=== PATIENT | male | born 1970 | race Caucasian/White ===

== ENCOUNTER 2016-06-18 06:53 | Day surgery (SDC) | payer MEDICAID ==
[2016-06-18] MEDS ORDERED: NS 1,000 ML IV ONE (06:59)
[2016-06-18] MEDS ORDERED: DIAZEPAM 5 MG TAB PO ONE (06:59)
[2016-06-18] MEDS ORDERED: diphenhydrAMINE 25 MG CAP PO ONE ×2 (06:59→07:38)
[2016-06-18] MEDS ORDERED: ASPIRIN EC 325 MG TAB PO ONE (06:59)
[2016-06-18] MEDS ORDERED: FAMOTIDINE 20 MG TAB PO ONE (06:59)
--- NOTE | 2016-06-18 07:24 | CPEKG ---
Heart Rate: 76 RR Interval: 789 P-R Interval: 172 QRSD Interval: 96 QT Interval: 396 QTC Interval: 446 P Woodworth: 70 QRS Woodworth: -29 T Wave Woodworth: 45 EKG Severity - OTHERWISE NORMAL ECG - EKG Impression: SINUS RHYTHM EKG Impression: BORDERLINE LEFT AXIS DEVIATION Electronically Signed By: Abelino Pham 18-Jun-2016 07:40:47
[2016-06-18] MEDS ORDERED: DIAZEPAM 5 MG TAB ONE (07:38)
[2016-06-18] MEDS ORDERED: FAMOTIDINE 20 MG TAB ONE (07:38)
[2016-06-18 07:45] LABS: % IMMATURE GRANULYOCYTES 0.4 % (0.0-1.1); ABSOLUTE IMMATURE GRANULOCYTES 0.03 10^3/uL (0.00-0.10); ADD DIFF? NO; ADD MORPH? NO; ADD SCAN? NO; ATYPICAL LYMPHOCYTE FLAG 30 (0-99); FRAGMENT RBC FLAG 0 (0-99); HEMATOCRIT 43.5 % (40.0-51.0); HEMOGLOBIN 15.3 g/dL (13.7-17.5); LEFT SHIFT FLG 0 (0-99); LIPEMIA HEMOLYSIS FLAG 90 (0-99); MEAN CELL HEMOGLOBIN 31.7 pg (27.9-34.1); MEAN CELL HEMOGLOBIN CONCENTR. 35.2 g/dL (32.4-36.7); MEAN CELL VOLUME 90.1 fL (81.5-99.8); MEAN PLATELET VOLUME 8.9 fL (8.7-11.7); PLATELET CLUMPS FLAG 20 (0-99); PLATELET COUNT 360 10^3/uL (150-400); RED BLOOD CELL COUNT 4.83 10^6/uL (4.40-6.38); RED CELL DISTRIBUTION WIDTH 13.7 % (11.5-15.2)
[2016-06-18 07:59] LABS: INR 0.93 (0.83-1.16); PROTIME(PATIENT) 12.4 SEC (12.0-15.0)
[2016-06-18 08:09] LABS: ANION GAP 9 mEq/L (8-16); CALCIUM 8.6 mg/dL (8.5-10.4); CARBON DIOXIDE 24 mEq/l (22-31); CHLORIDE 108 mEq/L (97-110); CHOLESTEROL 171 mg/dL (140-200); CHOLESTEROL/HDL RATIO 3.72 RATIO (1.00-4.97); CREATININE 0.7 mg/dL (0.7-1.3); GLOMERULAR FILTRATION RATE > 60; GLUCOSE 98 mg/dL (70-100); HIGH DENSITY LIPOPROTEIN 46 mg/dL (40-65); LDL/HDL RATIO 2.46 RATIO (1.00-3.64); LOW DENSITY LIPOPROTEIN 113 mg/dL (70-100); MAGNESIUM 1.8 mg/dL (1.6-2.3); NON-HIGH DENSITY LIPOPROTEIN 125 mg/dL (90-129); POTASSIUM 4.5 mEq/L (3.5-5.2); SODIUM 141 mEq/L (134-144); TRIGLYCERIDE 64 mg/dL (40-150); VERY LOW DENSITY LIPOPROTEINS 12 mg/dL (8-25)
[2016-06-18] MEDS ORDERED: LIDOCAINE 1% 30 ML SDV ONE (08:53)
[2016-06-18] MEDS ORDERED: MIDAZOLAM 2 MG/2 ML VIAL ONE (08:54)
[2016-06-18] MEDS ORDERED: VERAPAMIL 5 MG/2 ML VIAL ONE (08:54)
[2016-06-18] MEDS ORDERED: fentaNYL 100 MCG/2 ML INJ ONE (08:54)
[2016-06-18] MEDS ORDERED: HEPARIN 10,000 UNIT/10 ML MDV ONE ×2 (08:55)
[2016-06-18] MEDS ORDERED: IOPAMIDOL (ISOVUE-370) 150 ML BTL IV ONE (08:55)
[2016-06-18] MEDS ORDERED: ETOMIDATE 40 MG/20 ML INJ ONE (09:38)
--- NOTE | 2016-06-18 09:47 | PDDXCAT ---
Diagnostic Cath Note - . Date: 06/18/16 Head Of Digital Advertising & Integration: Charlette Indication: other (CCS IV angina, Intermediate risk stress test, 50 pack year history of smoking, premature family history of cardiac events) - Procedure Access: left wrist (A plethysmography trace assisted Alexandr's Test was used to document dual artery supply to the hand and index finger prior to access.) Procedure: left heart catheterization, coronary angiography, left ventriculogram - Materials Left Heart Cath size: 5F Left Heart Cath materials: JL3.5, JR4.0, pigtail - Findings-Left Heart Catheterization LM: 6 mm in size. Bifurcates into an LAD and circumflex system. LAD: 4 mm in size. No evidence of flow-limiting disease with SANTO III flow. LCX: 3.5 mm in size. No evidence of flow-limiting disease with SANTO III flow. RCA: Right dominant (gives rise to PDA and PLV branches). 3.5 mm in size. No evidence of flow-limiting disease with SANTO III flow throughout. EDP: 13 mmHg LVEF: 51% by planimetry Wall motion: Mild global wall hypokinesis. The visualized protion of the thoracic aorta revealed three sinuses of Valsalva. There was no evidence of aneurysm or dissection. Complications: None Estimated blood loss: <50ml Closure method: TR Band Assessment: No evidence of luminal irregularities consistent with atherosclerosis or coronary artery disease. The patient had a low normal ejection fraction at 51% with mild global wall hypokinesis on LVG. We will place the patient on 30 days of an oral proton pump inhibitor. The patient should follow up with GI given his history of GI bleeding and chronic reflux. He will return to the ER if he vomits or passes blood in his stool. He says he is scheduled for upper and lower endoscopy July 02. Patient Problems: Problems Problem Status Diagnosed Chest pain Acute
== END 2016-06-18 13:30 | disposition home or self-care (01) ==
LOC: FCATH 06:53
PROVIDERS: ATTEND Internal Medicine Cardiovascular Disease
PROC: B2151ZZ Fluoroscopy of Left Heart using Low Osmolar Contrast (ICD-10-PCS; principal; 2016-06-18)
PROC: 4A023N7 Measurement of Cardiac Sampling and Pressure, Left Heart, Percutaneous Approach (ICD-10-PCS; principal; 2016-06-18)
PROC: B2111ZZ Fluoroscopy of Multiple Coronary Arteries using Low Osmolar Contrast (ICD-10-PCS; principal; 2016-06-18)
DX: R07.9 Chest pain, unspecified (principal); Z72.0 Tobacco use; Z82.49 Family history of ischemic heart disease and other diseases of the circulatory system
CPT/HCPCS: J1644; J2250; J3010; Q9967

== ENCOUNTER 2016-07-02 07:46 | Day surgery (SDC) | payer MEDICAID ==
[2016-07-02] MEDS ORDERED: LIDOCAINE 1% 5 ML SDV ONE (08:06)
[2016-07-02] MEDS ORDERED: LR 1,000 ML IV ONE (08:42)
[2016-07-02] MEDS ORDERED: LIDOCAINE 1% 5 ML SDV ID PRN (08:42)
[2016-07-02] MEDS ORDERED: ROCURONIUM 50 MG/5 ML VIAL ONE (11:49)
[2016-07-02] MEDS ORDERED: MIDAZOLAM 2 MG/2 ML VIAL ONE (11:51)
[2016-07-02] MEDS ORDERED: fentaNYL 100 MCG/2 ML INJ ONE (11:53)
[2016-07-02] MEDS ORDERED: PROPOFOL 200 MG/20 ML VIAL ONE ×2 (11:53→11:55)
[2016-07-02] MEDS ORDERED: LIDOCAINE 2% 5 ML SDV ONE (11:56)
[2016-07-02] MEDS ORDERED: PHENYLEPHRINE HCL 100 MCG/ML SYR ONE (12:21)
--- NOTE | 2016-07-02 12:58 | GPN ---
[f rep st] PROCEDURE NOTE DATE OF PROCEDURE: 07/02/2016 PROCEDURE: Esophagogastroduodenoscopy with biopsy. INDICATION: The patient is 45-year-old male with history of Weiss esophagus who presents for evaluation of nausea and vomiting. CONSENT: Risks, benefits, and alternatives of the procedure were discussed in great detail with the patient. Risks of infection, bleeding, perforation, and sedation were discussed. All questions were answered. Informed consent was obtained. MEDICATIONS: Propofol. Please see Anesthesiology records details. ESTIMATED BLOOD LOSS: Insignificant. ESOPHAGOGASTRODUODENOSCOPY EXAMINATION: The Olympus upper endoscope was introduced via the mouth and advanced to the esophagus. The proximal and mid esophagus were normal in appearance. The patient was noted to have an irregular Z line and biopsies were taken. The stomach was entered and closely examined, including retroflexed views of the angularis, cardia and fundus. The patient was noted to have a moderate- sized hiatal hernia. The mucosa in the antrum and the body of the stomach was erythematous in a patchy distribution and biopsies were taken. The duodenal bulb and second portion of the duodenum were normal in appearance. IMPRESSION: 1. Hiatal hernia. 2. Gastritis status post biopsy. 3. Irregular Z line status post biopsies. 4. Due to the absence of other causes and hiatal hernia seen, suspect this may be due to gastroesophageal reflux disease. RECOMMENDATIONS: 1. At this time, I recommend an anti-reflux lifestyle, as well as PPI therapy twice a day. 2. Proceed with a colonoscopy for evaluation of hematochezia. /[id number]/MODL MTDD
--- NOTE | 2016-07-02 13:02 | GPN ---
[f rep st] PROCEDURE NOTE DATE OF PROCEDURE: 07/02/2016 PROCEDURE DONE: Incomplete colonoscopy due to prep. INDICATION: The patient is a 45-year-old male who presents for hematochezia. He presents for further evaluation. CONSENT: Risks, benefits, and alternatives of the procedure were discussed in detail with the patient. Risk of infection, bleeding, perforation, and sedation were discussed. All questions were answered. Informed consent was obtained. MEDICATIONS: Propofol. Please see Anesthesiology record for details. ESTIMATED BLOOD LOSS: None. COLONOSCOPIC EVALUATION: The scope was introduced into the rectum. A large amount of solid, as well as liquid, thick brown stool was seen. The procedure was terminated at this time. IMPRESSION: Poor prep. RECOMMENDATIONS: Needs 2-day prep with the whole 2 preps. /[id number]/MODL MTDD
== END 2016-07-02 14:54 | disposition home or self-care (01) ==
LOC: FSGY 07:46
PROVIDERS: ATTEND Internal Medicine Gastroenterology
PROC: 0DB58ZX Excision of Esophagus, Via Natural or Artificial Opening Endoscopic, Diagnostic (ICD-10-PCS; principal; 2016-07-02 11:45)
DX: K92.1 Melena (principal); K29.70 Gastritis, unspecified, without bleeding; K44.9 Diaphragmatic hernia without obstruction or gangrene; Z72.0 Tobacco use; J44.9 Chronic obstructive pulmonary disease, unspecified; I25.10 Atherosclerotic heart disease of native coronary artery without angina pectoris
CPT/HCPCS: J2250; J2370; J2704; J3010

== ENCOUNTER 2016-12-07 01:53 | Emergency (ER) | payer MEDICAID ==
--- NOTE | 2016-12-07 01:55 | EDPHY ---
H & P HPI/ROS: HPI CHIEF COMPLAINT: Right-sided chest pain. HISTORY OF PRESENT ILLNESS: This patient 46-year-old male, denies having any significant medical history does not take any daily medications, presents emergency room 48 hours of sharp stabbing right sided lateral chest wall pain. Radiates into his right axilla. Worse with certain movements as well as when he breathes in and out. He denies hemoptysis. Productive cough. He does cough chronically as he smokes 1.5 packs per day. Denies left-sided chest pain , denies numbness or tingling, nausea vomiting. Main complaint is sharp stabbing right lateral chest wall pain. Denies trauma. Past Medical History: Weiss's esophagus. Past Surgical History: Left clavicle surgery. Social History: smokes 1.5 packs per day. Denies illicit drugs or alcohol. Family History: Noncontributory ROS REVIEW OF SYSTEMS: A comprehensive 10 point review of systems is otherwise negative aside from elements mentioned in the history of present illness. Exam Constitutional triage nursing summary reviewed, vital signs reviewed, awake/ alert. Eyes normal conjunctivae and sclera, EOMI, PERRLA. HENT normal inspection, atraumatic, moist mucus membranes, no epistaxis, neck supple/ no meningismus, no raccoon eyes. Respiratory clear to auscultation bilaterally, normal breath sounds, no respiratory distress, no wheezing. Cardiovascular chest wall: tender palpation right lateral chest wall. rate normal, regular rhythm, no murmur, no edema, distal pulses normal. Gastrointestinal soft, non-tender, no rebound, no guarding, normal bowel sounds, no distension, no pulsatile mass. Genitourinary no CVA tenderness. Musculoskeletal no midline vertebral tenderness, full range of motion, no calf swelling, no tenderness of extremities, no meningismus, good pulses, neurovascularly intact. Skin pink, warm, & dry, no rash, skin atraumatic. Neurologic awake, alert and oriented x 3, AAOx3, moves all 4 extremities equally, motor intact, sensory intact, CN II-XII intact, normal cerebellar, normal vision, normal speech. Psychiatric normal mood/affect. Heme/Lymph/Immune no lymphadenopathy. Differential Diagnosis: Includes but is not limited to in a particular order pleurisy, pneumonia, pulmonary embolism, pneumothorax, musculoskeletal chest wall pain, rib contusion, rib strain, costochondritis Medical Decision Making: plan for this patient x-ray two view to rule out pneumothorax, EKG, blood work, 30 mg IV Toradol, he is allergic to aspirin gives him nausea but states that he has taken to her in the past fine. Re- evaluate. Re-evaluation: EKG interpretation by me on record in [employer] computer system. Impression Time of EKG 2:17 a.m., sinus rhythm rate of 73 there is left axis deviation present. There is no acute ST elevation or significant ST depression or significant T- wave abnormalities. Unremarkable EKG. ED x-ray chest two view: negative for acute cardiopulmonary disease. Left clavicle previous heart rates noted. No pneumothorax. No lung mass. Image interpreted by myself. 0309AM: Patient resting comfortably in fact he was sleeping. I woke him up. Feels much better. He denies pain at this time. He tells me IV Toradol made him pain free. His D-dimer is negative troponin negative EKG nonischemic. Chest x-ray two view shows no pneumothorax or obvious source of pain. Feels better after anti-inflammatory pain medicine most likely this is musculoskeletal rib pain or nerve inflammation. I do recommend he use ice packs , anti-inflammatory pain medicine. He understands to return to the emergency room if develops worsening symptoms I do also recommend he refrain from smoking. Source: Patient - Medical/Surgical History Hx Asthma: No Hx Chronic Respiratory Disease: Yes Hx Diabetes: No Hx Cardiac Disease: Yes Hx Renal Disease: No Hx Cirrhosis: No Hx Alcoholism: No Hx HIV/AIDS: No Hx Splenectomy or Spleen Trauma: No Other PMH: COPD, CHF, BARRETS ESOPHAGUS, KIDNEY TUMOR, BACK DISC PROBS, BIPOLAR , PTSD, ?GA AT 35 YR - Social History Smoking Status: Heavy smoker Constitutional: Initial Vital Signs Temperature (C) 36.5 C 12/07/16 02:00 Heart Rate 73 12/07/16 02:00 Respiratory Rate 16 12/07/16 02:00 Blood Pressure 110/74 12/07/16 02:00 O2 Sat (%) 96 12/07/16 02:00 O2 Delivery Mode Room Air Allergies/Adverse Reactions: aspirin Allergy (Mild, Verified 12/07/16 02:02) Home Medications: Medication Instructions Recorded Gabapentin [Neurontin 300 MG (*)] 06/01/16 Ibuprofen [Motrin (*)] 800 mg PO Q6-8PRN #10 tab 12/07/16 Medical Decision Making - Data Points Laboratory Results: Laboratory Results 12/07/16 02:10 12/07/16 02:10 12/07/16 12/07/16 12/07/16 02:10 02:10 02:10 WBC 10.14 10^3/uL H 10^3/uL (3.80-9.50) RBC 4.72 10^6/uL 10^6/uL (4.40-6.38) Hgb 15.1 g/dL g/dL (13.7-17.5) Hct 43.4 % % (40.0-51.0) MCV 91.9 fL fL (81.5-99.8) MCH 32.0 pg pg (27.9-34.1) MCHC 34.8 g/dL g/dL (32.4-36.7) RDW 12.9 % % (11.5-15.2) Plt Count 312 10^3/uL 10^3/uL (150-400) MPV 9.6 fL fL (8.7-11.7) Neut % (Auto) 58.8 % % (39.3-74.2) Lymph % (Auto) 29.9 % % (15.0-45.0) Lassen % (Auto) 8.1 % % (4.5-13.0) Eos % (Auto) 2.2 % % (0.6-7.6) Baso % (Auto) 0.6 % % (0.3-1.7) Nucleat RBC Rel Count 0.0 % % (0.0-0.2) Absolute Neuts (auto) 5.97 10^3/uL 10^3/uL (1.70-6.50) Absolute Lymphs (auto) 3.03 10^3/uL H 10^3/uL (1.00-3.00) Absolute Monos (auto) 0.82 10^3/uL H 10^3/uL (0.30-0.80) Absolute Eos (auto) 0.22 10^3/uL 10^3/uL (0.03-0.40) Absolute Basos (auto) 0.06 10^3/uL 10^3/uL (0.02-0.10) Absolute Nucleated RBC 0.00 10^3/uL 10^3/uL (0-0.01) Immature Gran % 0.4 % % (0.0-1.1) Immature Gran # 0.04 10^3/uL 10^3/uL (0.00-0.10) D-Dimer < 0.27 ug/mLFEU ug/mLFEU (0.00-0.50) Sodium 142 mEq/L mEq/L (134-144) Potassium 4.2 mEq/L mEq/L (3.5-5.2) Chloride 106 mEq/L mEq/L (97-110) Carbon Dioxide 24 mEq/l mEq/l (22-31) Anion Gap 12 mEq/L mEq/L (8-16) BUN 16 mg/dL mg/dL (7-23) Creatinine 1.0 mg/dL mg/dL (0.7-1.3) Estimated GFR > 60 Glucose 132 mg/dL H mg/dL (70-100) Calcium 9.9 mg/dL mg/dL (8.5-10.4) Magnesium 1.9 mg/dL mg/dL (1.6-2.3) Total Bilirubin 0.5 mg/dL mg/dL (0.1-1.4) Conjugated Bilirubin 0.2 mg/dL mg/dL (0.0-0.5) Unconjugated Bilirubin 0.3 mg/dL mg/dL (0.0-1.1) AST 22 IU/L IU/L (17-59) ALT 30 IU/L IU/L (21-72) Alkaline Phosphatase 54 IU/L IU/L (38-126) Creatine Kinase 93 IU/L IU/L (0-224) CK-MB (CK-2) Fraction 0.88 ng/mL ng/mL (0-3.19) Troponin I < 0.012 ng/mL ng/mL (0-0.034) Total Protein 6.5 g/dL g/dL (6.3-8.2) Albumin 3.9 g/dL g/dL (3.5-5.0) Lipase 228.0 IU/L IU/L (23-300) Medications Given: Discontinued Medications Sodium Chloride (Ns) 1,000 mls @ 0 mls/hr IV ONCE ONE; Wide Open PRN Reason: Protocol Stop: 12/07/16 02:02 Last Admin: 12/07/16 02:21 Dose: 1,000 mls Ketorolac Tromethamine (Toradol) 30 mg IVP EDNOW ONE Stop: 12/07/16 02:02 Last Admin: 12/07/16 02:20 Dose: 30 mg Departure - Departure Disposition: Home, Routine, Self-Care Clinical Impression: Chest wall pain Condition: Good Instructions: Thoracic Pain (ED) Additional Instructions: 1. Return emergency room if you have any worsening symptoms questions or concerns. 2. Ice your chest wall. Take anti-inflammatory pain medicine. 3. Return emergency room if there is worsening symptoms 4. take this medication with food not on an empty stomach. If it is causing indigestion stop taking the medication. Referrals: Sierra Patel, PAC [Primary Care Provider] - As per Instructions Prescriptions: Ibuprofen [Motrin (*)] 800 mg PO Q6-8PRN #10 tab
[2016-12-07] MEDS ORDERED: KETOROLAC 30 MG/1 ML SDV IVP ONE (02:01)
[2016-12-07] MEDS ORDERED: NS 1,000 ML IV ONE (02:01)
[2016-12-07 02:17] LABS: % IMMATURE GRANULYOCYTES 0.4 % (0.0-1.1); ABSOLUTE IMMATURE GRANULOCYTES 0.04 10^3/uL (0.00-0.10); ADD DIFF? NO; ADD MORPH? NO; ADD SCAN? NO; ATYPICAL LYMPHOCYTE FLAG 30 (0-99); FRAGMENT RBC FLAG 0 (0-99); HEMATOCRIT 43.4 % (40.0-51.0); HEMOGLOBIN 15.1 g/dL (13.7-17.5); LEFT SHIFT FLG 0 (0-99); LIPEMIA HEMOLYSIS FLAG 90 (0-99); MEAN CELL HEMOGLOBIN CONCENTR. 34.8 g/dL (32.4-36.7); MEAN CELL VOLUME 91.9 fL (81.5-99.8); MEAN PLATELET VOLUME 9.6 fL (8.7-11.7); PLATELET CLUMPS FLAG 0 (0-99); PLATELET COUNT 312 10^3/uL (150-400); RED BLOOD CELL COUNT 4.72 10^6/uL (4.40-6.38); RED CELL DISTRIBUTION WIDTH 12.9 % (11.5-15.2)
--- NOTE | 2016-12-07 02:19 | CPEKG ---
Heart Rate: 73 RR Interval: 822 P-R Interval: 172 QRSD Interval: 98 QT Interval: 404 QTC Interval: 446 P Chester: 77 QRS Chester: -36 T Wave Chester: 19 EKG Severity - OTHERWISE NORMAL ECG - EKG Impression: SINUS RHYTHM EKG Impression: LEFT AXIS DEVIATION Electronically Signed By: Navin Chapman 07-Dec-2016 06:58:21
[2016-12-07 02:31] LABS: ALANINE AMINOTRANSFERASE 30 IU/L (21-72); ALBUMIN 3.9 g/dL (3.5-5.0); ALKALINE PHOSPHATASE 54 IU/L (38-126); ANION GAP 12 mEq/L (8-16); ASPARTATE AMINOTRANSFERASE 22 IU/L (17-59); BILIRUBIN,TOTAL 0.5 mg/dL (0.1-1.4); BILIRUBIN-CONJUGATED 0.2 mg/dL (0.0-0.5); BILIRUBIN-UNCONJUGATED 0.3 mg/dL (0.0-1.1); CALCIUM 9.9 mg/dL (8.5-10.4); CARBON DIOXIDE 24 mEq/l (22-31); CHLORIDE 106 mEq/L (97-110); GLOMERULAR FILTRATION RATE > 60; GLUCOSE 132 mg/dL (70-100); MAGNESIUM 1.9 mg/dL (1.6-2.3); POTASSIUM 4.2 mEq/L (3.5-5.2); SODIUM 142 mEq/L (134-144); TOTAL PROTEIN 6.5 g/dL (6.3-8.2)
[2016-12-07 02:43] LABS: CREATINE KINASE-MB FRACTION 0.88 ng/mL (0-3.19); TROPONIN I < 0.012 ng/mL (0-0.034)
[2016-12-07 03:27] VITALS: BP 97/63; PULSE 75; RESP 18; TEMP 98.1; O2SAT 95
== END 2016-12-07 03:28 | disposition home or self-care (01) ==
DX: R07.89 Other chest pain (principal); J44.9 Chronic obstructive pulmonary disease, unspecified; I50.9 Heart failure, unspecified; F17.200 Nicotine dependence, unspecified, uncomplicated; E86.9 Volume depletion, unspecified
CPT/HCPCS: 96374; J1885

== ENCOUNTER 2016-12-19 18:39 | Emergency (ER) | payer MEDICAID ==
[2016-12-19 18:44] VITALS: RESP 16; TEMP 98.1
[2016-12-19 19:16] LABS: % IMMATURE GRANULYOCYTES 0.4 % (0.0-1.1); ABSOLUTE IMMATURE GRANULOCYTES 0.04 10^3/uL (0.00-0.10); ADD DIFF? NO; ADD MORPH? NO; ADD SCAN? NO; ATYPICAL LYMPHOCYTE FLAG 10 (0-99); FRAGMENT RBC FLAG 0 (0-99); HEMATOCRIT 47.2 % (40.0-51.0); HEMOGLOBIN 16.4 g/dL (13.7-17.5); LEFT SHIFT FLG 0 (0-99); LIPEMIA HEMOLYSIS FLAG 90 (0-99); MEAN CELL HEMOGLOBIN 31.7 pg (27.9-34.1); MEAN CELL HEMOGLOBIN CONCENTR. 34.7 g/dL (32.4-36.7); MEAN CELL VOLUME 91.3 fL (81.5-99.8); MEAN PLATELET VOLUME 9.1 fL (8.7-11.7); PLATELET CLUMPS FLAG 0 (0-99); PLATELET COUNT 365 10^3/uL (150-400); RED BLOOD CELL COUNT 5.17 10^6/uL (4.40-6.38); RED CELL DISTRIBUTION WIDTH 13.6 % (11.5-15.2)
[2016-12-19 19:43] LABS: ANION GAP 13 mEq/L (8-16); CALCIUM 9.5 mg/dL (8.5-10.4); CARBON DIOXIDE 21 mEq/l (22-31); CHLORIDE 107 mEq/L (97-110); CREATININE 0.9 mg/dL (0.7-1.3); ETHANOL SERUM < 10 mg/dL (0-10); GLOMERULAR FILTRATION RATE > 60; GLUCOSE 104 mg/dL (70-100); POTASSIUM 4.4 mEq/L (3.5-5.2); SODIUM 141 mEq/L (134-144)
--- NOTE | 2016-12-19 19:51 | EDPHY ---
[facility] General Narrative: CHIEF COMPLAINT: depression HISTORY OF PRESENT ILLNESS: 46-year-old male presents emergency department via taxi from [facility] for medical clearance prior to psychiatric hospitalization. Patient has a history of depression, PTSD, previous suicide attempts. He has increasing depression over the last few months. Patient denies current active suicidal thoughts, he reports years of chronic suicidal thoughts. Patient reports he has been sober for 4 years. He reports he is in a bad marriage. He is requesting medication stabilization and treatment. Patient denies suicidal ideations, homicidal ideations, auditory or visual hallucinations. He denies drug or alcohol use other than marijuana. REVIEW OF SYSTEMS: A comprehensive 10 point review of systems is otherwise negative aside from elements mentioned in the history of present illness. Physical Exam Gen: Alert and Oriented, NAD HEENT: PERRL, moist mucous membranes NECK: no meningismus CV: regular rate and regular rhythm PULM: CTAB, no wheezes ABDOMEN: soft, non tender to palpation, BS present BACK: No CVA tenderness NEURO: Neurologically grossly intact EXTREMITIES: normal appearing SKIN: no rash or break in skin on exposed skin PSYCH: answers questions appropriately, denies current suicidal ideations, homicidal ideations, auditory or visual hallucinations. Previous Psychiatric History: previous inpatient psychiatric admission, previous suicide attempt, substance abuse, depression Smoking Status: Heavy smoker Medical Decision Making: The patient is medically cleared and has been discharged and sent back to [facility] awaiting hospitalization. Time Medically Cleared for Psychiatric Evaluation: 20:15 - Objective Vital Signs: Initial Vital Signs Temperature (C) 36.7 C 12/19/16 18:42 Heart Rate 100 12/19/16 18:42 Respiratory Rate 16 12/19/16 18:42 Blood Pressure 115/79 12/19/16 18:42 O2 Sat (%) 94 12/19/16 18:42 O2 Delivery Mode Room Air Allergies/Adverse Reactions: aspirin Allergy (Mild, Verified 12/07/16 02:02) Home Medications: Medication Instructions Recorded Gabapentin [Neurontin 300 MG (*)] 06/01/16 Ibuprofen [Motrin (*)] 800 mg PO Q6-8PRN #10 tab 12/07/16 Laboratory Results: Laboratory Results 12/19/16 19:05 12/19/16 19:05 Departure - Departure Disposition: Home, Routine, Self-Care Clinical Impression: Depression Condition: Good Instructions: Depression (ED) Additional Instructions: [facility] Referrals: [facility],. [Clinic] - As per Instructions
[2016-12-19 20:14] VITALS: BP 112/75; PULSE 89; O2SAT 95
== END 2016-12-19 20:26 | disposition home or self-care (01) ==
DX: F32.9 Major depressive disorder, single episode, unspecified (principal); F17.200 Nicotine dependence, unspecified, uncomplicated
CPT/HCPCS: 80305; G0480

== ENCOUNTER 2017-01-21 12:15 | Day surgery (SDC) | payer MEDICAID ==
[2017-01-21] MEDS ORDERED: LIDOCAINE 1% 2 ML INJ ONE (12:49)
[2017-01-21] MEDS ORDERED: LIDOCAINE 1% 2 ML INJ ID PRN (12:50)
[2017-01-21] MEDS ORDERED: LR 1,000 ML IV ONE (12:50)
--- NOTE | 2017-01-21 14:44 | PDANEPAE ---
ANE Past Medical History - Cardiovascular History Hx Hypertension: No Hx Arrhythmias: No Hx Chest Pain: No Hx Coronary Artery / Peripheral Vascular Disease: No Hx CHF / Valvular Disease: No Hx Palpitations: No Cardiovascular History Comment: hx of chest pains- work up with Karin at [facility]. chf. cp. mi at 35 yo - Pulmonary History Hx COPD: No Hx Asthma/Reactive Airway Disease: No Hx Recent Upper Respiratory Infection: No Hx Oxygen in Use at Home: No Hx Sleep Apnea: No Sleep Apnea Screening Result - Last Documented: Negative Pulmonary History Comment: rex triggers no dx. CHILDHOOD ASTHMA - Neurologic History Hx Cerebrovascular Accident: No Hx Seizures: No Hx Dementia: No - Endocrine History Hx Diabetes: No - Renal History Hx Renal Disorders: Yes Renal History Comment: kidney tumor currently being looked at next week - Liver History Hx Hepatic Disorders: No - Neurological & Psychiatric Hx Hx Neurological and Psychiatric Disorders: Yes Neurological / Psychiatric History Comment: bipolar. ptsd - Cancer History Hx Cancer: No - Congenital Disorder History Hx Congenital Disorders: No - GI History Hx Gastrointestinal Disorders: Yes Gastrointestinal History Comment: barretts esophagus. hx of colonoscopy - Other Health History Other Health History: wears glasses - Chronic Pain History Chronic Pain: No - Surgical History Prior Surgeries: ANGIOGRAM. appy. left shoulder reconstruction. kidney tumor removal. routine colonoscopy ANE Review of Systems - Exercise capacity METS (RN): 4 METS ANE Patient History - Allergies Allergies/Adverse Reactions: aspirin Allergy (Mild, Verified 12/07/16 02:02) - Home Medications Home Medications: Gabapentin [Neurontin 300 MG (*)] 06/01/16 [Last Taken 07/01/16] [place] Carbonate 01/18/17 [Last Taken 01/19/17] Vistaril 01/18/17 [Last Taken 01/18/17] Xanax 01/18/17 [Last Taken 01/18/17] Zyprexa 01/18/17 [Last Taken 01/19/17] - NPO status NPO Status: no food or drink >8 hours NPO Since - Liquids (Date): 01/21/17 NPO Since - Liquids (Time): 03:00 NPO Since - Solids (Date): 01/20/17 NPO Since - Solids (Time): 08:00 - Anes Hx Anes Hx: no prior problems - Smoking Hx Smoking Status: Heavy smoker (30 pack years) - Alcohol Use Alcohol Use: None - Family Anes Hx Family Anes Hx: none Family Hx Anesthesia Complications: none ANE Labs/Vital Signs - Vital Signs Blood Pressure: 112/80 Heart Rate: 82 Respiratory Rate: 16 O2 Sat (%): 93 Height: 187.96 cm Weight: 88.451 kg ANE Physical Exam - Airway Neck exam: FROM Mallampati Score: Class 2 Mouth exam: normal dental/mouth exam - Pulmonary Pulmonary: no respiratory distress, clear to auscultation - Cardiovascular Cardiovascular: regular rate and rhythym, no murmur, rub, or gallop - ASA Status ASA Status: III ANE Anesthesia Plan Anesthesia Plan: GA with mask Total IV Anesthesia: Yes
[2017-01-21] MEDS ORDERED: PROPOFOL/EMULSION 500 MG/50 ML BOTTLE IV ONE ×2 (15:30→16:13)
--- NOTE | 2017-01-21 15:42 | PDGENHP ---
History & Physical Chief Complaint: phx polyps History of Present Illness: 46 year old male presents for evaluation of blood in stools. Has Phx polyps. Pertinent Past, Social, Family History: PMHx: CAD, asthma, Relevant Physical Exam: HEENT: anicteric. CV: RRR +s1s2. Lungs: CTAB No w/r/ r. Abd; soft, nt, + BS Cardiorespiratory Assessment: ASA 3
[2017-01-21] MEDS ORDERED: NS 500 ML IV SCH (15:45)
--- NOTE | 2017-01-21 15:45 | POSTOPPROG ---
Post Op Note Date of Operation: 01/21/17 Surgeon: Cornelius Reed Anesthesia: IV Sedation Pre-op Diagnosis: barretts, blood in stools, phx polyps Post-op Diagnosis: hemorrhoids, gs Indication: barretts, blood in stools, phx polyps Procedure: EGD with Bx, colonoscopy. Inf/Abcess present in the surg proc area at time of surgery?: No EBL: Minimal Specimen(s): irreg z line gastritis
[2017-01-21] MEDS ORDERED: ACETAMINOPHEN 500 MG TAB PO PRN (16:04)
[2017-01-21] MEDS ORDERED: NALOXONE HCL 0.4 MG/ML INJ IVP PRN (16:04)
[2017-01-21 16:29] VITALS: TEMP 98.2
--- NOTE | 2017-01-21 17:01 | GPN ---
[f rep st] PROCEDURE NOTE DATE OF PROCEDURE: 01/21/2017 PROCEDURE: Esophagogastroduodenoscopy with biopsy. INDICATIONS: The patient is a 46-year-old male who presents for evaluation of nausea. CONSENT: Risks, benefits, and alternatives of the procedure were discussed in great detail with the patient. Risks of infection, bleeding, perforation, and sedation were discussed. All questions answered and informed consent was obtained. MEDICATIONS: Propofol. Please see Anesthesiology records for details. ESTIMATED BLOOD LOSS: Insignificant. ESOPHAGOGASTRODUODENOSCOPY EXAMINATION: The Olympus upper endoscope was introduced into the mouth and advanced to the esophagus. The proximal and mid esophagus normal in appearance. The patient was noted to have an irregular Z- line, and biopsies were taken. A large hiatal hernia was noted. The stomach was entered and closely examined, including retroflexed view of the angularis, cardia, and fundus. The mucosa in the antrum and the body was erythematous in a patchy distribution. Biopsies were taken. The duodenal bulb and 2nd portion of the duodenum were normal in appearance. IMPRESSION: 1. Irregular Z-line, status post biopsy. 2. Hiatal hernia. 3. Gastritis, status post biopsy. 4. Due to large hiatal hernia, nausea may be due to reflux. Recommend proton pump inhibitor therapy and anti-reflux lifestyle. Await biopsy. RECOMMENDATIONS: 1. Follow up on biopsy results. 2. PPI therapy. 3. Antireflux lifestyle. 4. Proceed with colonoscopy. /[id number]/MODL MTDD
[2017-01-21 17:31] VITALS: BP 111/69; PULSE 78; RESP 13; O2SAT 95
--- NOTE | 2017-01-21 17:36 | GPN ---
[f rep st] PROCEDURE NOTE DATE OF PROCEDURE: 01/21/2017 PROCEDURE: Colonoscopy. INDICATIONS FOR PROCEDURE: The patient is a 46-year-old male with a personal history of polyps who presents for evaluation of hematochezia. CONSENT: Risks, benefits, and alternatives of the procedure were discussed in great detail with the patient. Risks of infection, bleeding, perforation, and sedation were discussed. All questions answered. Informed consent obtained. MEDICATIONS: Propofol. Please see Anesthesia records for details. ESTIMATED BLOOD LOSS: None. COLONOSCOPIC EVALUATION: A rectal exam was performed and internal hemorrhoids were appreciated. The Olympus adult colonoscope was placed in the rectum and advanced to cecum where the ileocecal valve and appendiceal orifice were seen. The quality of prep was good. The colonic mucosa was carefully examined on both insertion and withdrawal of the scope. Diverticula were noted in the sigmoid colon. No polyps or masses were noted. IMPRESSION: 1. Diverticulosis. 2. Suspect bleeding is hemorrhoidal. RECOMMENDATIONS: 1. Fiber supplementation. 2. No straining during bowel habits. 3. Repeat colonoscopy in 5 years, due to his history of precancerous polyps. /[id number]/MODL MTDD
--- NOTE | 2017-01-21 21:24 | POSTANESTH ---
Post Anesthetic Evaluation Cardiovascular Status: Normal, Stable, Similar to Pre-Op Cond Respiratory Status: Normal, Stable, Similar to Pre-op Cond. Level of Consciousness/Mental Status: Can Participate in Eval, Alert and Oriented Pain Control: Adequate, Prn Tx Ordered Nausea/Vomiting Control: Adequate, Prn Tx Ordered Complications Possibly Related to Anesthesia: None Noted
== END 2017-01-21 18:14 | disposition home or self-care (01) ==
LOC: FSGY 12:15
PROVIDERS: ATTEND Internal Medicine Gastroenterology
DX: K57.32 Diverticulitis of large intestine without perforation or abscess without bleeding (principal); K64.8 Other hemorrhoids; K44.9 Diaphragmatic hernia without obstruction or gangrene; K29.60 Other gastritis without bleeding; Z86.010 Personal history of colon polyps; Z80.0 Family history of malignant neoplasm of digestive organs; I25.10 Atherosclerotic heart disease of native coronary artery without angina pectoris; J45.909 Unspecified asthma, uncomplicated; D49.519 Neoplasm of unspecified behavior of unspecified kidney; F31.9 Bipolar disorder, unspecified; F43.10 Post-traumatic stress disorder, unspecified; F17.210 Nicotine dependence, cigarettes, uncomplicated
CPT/HCPCS: J2704

== ENCOUNTER → 2017-01-30 | Outpatient (CLI) | payer MEDICAID | LOC: FIMAGING 09:48 | PROVIDERS: ATTEND Internal Medicine Nephrology | DX: Q61.02 Congenital multiple renal cysts (principal); R39.198 Other difficulties with micturition ==

== ENCOUNTER → 2017-02-14 | Outpatient (CLI) | payer MEDICAID ==
[~2017-02-14] MED LIST: IOPAMIDOL (ISOVUE 370) 100 ML BTL IV ONE
== END ==
LOC: FIMAGING 10:06
PROVIDERS: ATTEND Internal Medicine Nephrology
DX: Q61.02 Congenital multiple renal cysts (principal)
CPT/HCPCS: Q9967